=== PATIENT | female | born 1940 | race Caucasian/White ===

== ENCOUNTER 2021-03-04 12:53 | Inpatient (IN) ==
[2021-03-04] MEDS ORDERED: Lactated Ringers 1000 ml BAG 1,000 ML IV ONE (14:16)
[2021-03-04 14:43] LABS: ABS Basophils 0.1 10^3/ul (0-0.2); ABS Eosinophils 0.3 10^3/ul (0-0.6); ABS Monocytes 0.7 10^3/ul (0-0.8); ABS Neutrophils 5.4 10^3/ul (1.5-7.7); Eosinophil % 3.4 %; Hematocrit 39 % (35-47); Hemoglobin 12.9 g/dL (12.0-16.0); Lymphocyte % 23.6 %; Mean Corpuscular HGB Conc 34 g/dL (31-36); Mean Corpuscular Hemoglobin 30 pg (27-31); Mean Corpuscular Volume 91 fL (80-97); Platelet Count 174 10^3/uL (150-450); Red Blood Count 4.25 10^6 /uL (3.70-4.87); Red Cell Distribution Width 18 % (10-15); White Blood Count 8.4 10^3/uL (3.5-10.8)
[2021-03-04 15:01] LABS: Albumin 2.5 g/dL (3.2-5.2); Albumin/Globulin Ratio 0.9 (1-3); C Reactive Protein 14.14 mg/L (<8.01); Calcium 8.8 mg/dL (8.6-10.3); EGFR African American 55.2 (>60); EGFR Non-African American 45.6 (>60); Globulin 2.8 g/dL (2-4); Potassium 3.2 mmol/L (3.5-5.0); Total Bilirubin 0.4 mg/dL (0.2-1.0); Total Protein 5.3 g/dL (6.4-8.9)
[2021-03-04] MEDS ORDERED: NS 0.9% 1000 ml BAG 1,000 ML IV ONE ×2 (18:38→20:08)
[2021-03-04 20:26] LABS: Urine Appearance Cloudy; Urine Bilirubin Negative (Negative); Urine Blood 2+ (Negative); Urine Color Yellow; Urine Glucose Negative (Negative); Urine Ketones Negative (Negative); Urine Nitrite Negative (Negative); Urine Protein Negative (Negative); Urine Specific Gravity 1.011 (1.002-1.030); Urine Urobilinogen Negative (Negative)
[2021-03-04 20:37] LABS: Urine Bacteria 1+ (Absent); Urine Red Blood Cell 3+(>10/hpf) (Absent); Urine Squamous Epithelial Cell Present (Absent); Urine White Blood Cell 3+(>20/hpf) (Absent); Urine Yeast Present (Absent)
[2021-03-04] MEDS ORDERED: Azithromycin 500 mg/250 ml NS 500 MG/250 ML BAG IVPB SCH (22:00)
[2021-03-04] MEDS ORDERED: cefTRIAXone 1 gm/50 mL NS BAG 1 GM/50 ML BAG IVPB SCH (22:00)
[2021-03-04] MEDS ORDERED: NS 0.9% 1000 ml BAG 1,000 ML IV SCH (23:45)
[2021-03-05] MEDS ORDERED: Dextrose 50% Syringe 50 ml 25 GM/50 ML SYRINGE IV PUSH PRN (00:40)
[2021-03-05] MEDS ORDERED: Heparin 5000 UNITS/ML 1 mL VIAL SUBCUT SCH (06:00)
[2021-03-05] MEDS: KCL 20 MEQ/100 ML IVPREMIX 20 MEQ/100 ML BAG IV SCH ×2 (06:36→09:25)
[2021-03-05 06:59] LABS: ABS Eosinophils 0.2 10^3/ul (0-0.6); ABS Lymphocytes 2.1 10^3/ul (1.0-4.8); ABS Monocytes 0.5 10^3/ul (0-0.8); ABS Neutrophils 4.5 10^3/ul (1.5-7.7); Hematocrit 35 % (35-47); Hemoglobin 11.4 g/dL (12.0-16.0); Lymphocyte % 27.8 %; Mean Corpuscular HGB Conc 33 g/dL (31-36); Mean Corpuscular Hemoglobin 30 pg (27-31); Mean Corpuscular Volume 92 fL (80-97); Mean Platelet Volume 11.3 fL (7.4-10.4); Nucleated Red Blood Cells % 0.1; Platelet Count 149 10^3/uL (150-450); Red Blood Count 3.76 10^6 /uL (3.70-4.87); Red Cell Distribution Width 19 % (10-15); White Blood Count 7.4 10^3/uL (3.5-10.8)
[2021-03-05 07:11] LABS: Calcium 7.9 mg/dL (8.6-10.3); EGFR African American 71.6 (>60); EGFR Non-African American 59.2 (>60); Potassium 3.1 mmol/L (3.5-5.0)
[2021-03-05] MEDS ORDERED: Potassium Chlor 20 meq TAB.ER PO ONE (08:23)
[2021-03-05 08:40] LABS: Magnesium 1.5 mg/dL (1.9-2.7)
[2021-03-05] MEDS ORDERED: Senna/Docusate 8.6/50 mg (NF) TAB PO SCH (09:00)
[2021-03-05] MEDS ORDERED: Sucralfate 1 gm SUSP 1 GM/10 ML UDC PO SCH (09:00)
[2021-03-05] MEDS ORDERED: Aspirin EC 81 mg TAB.EC (enteric coated) PO SCH (09:00)
[2021-03-05] MEDS: Senna TAB 8.6 mg TAB PO SCH (09:13)
[2021-03-05] MEDS: CMCS: Dabigatran 150 mg CAP (NF) PO SCH ×2 (09:30→20:27)
[2021-03-05] MEDS: Docusate LIQ 100 MG/10 ML UDC PO SCH (09:47)
[2021-03-05] MEDS: Sucralfate 1 gm SUSP 1 GM/10 ML UDC PO SCH ×4 (10:33→20:27)
[2021-03-05] MEDS ORDERED: Polyethylene Glycol 3350 17 GM PACKET PO ONE (18:45)
[2021-03-06] MEDS ORDERED: cefTRIAXone 1 gm/50 mL NS BAG 1 GM/50 ML BAG IVPB SCH (01:00)
[2021-03-06] MEDS: Sucralfate 1 gm SUSP 1 GM/10 ML UDC PO SCH ×4 (08:09→21:20)
[2021-03-06] MEDS: CMCS: Dabigatran 150 mg CAP (NF) PO SCH ×2 (08:10→21:37)
[2021-03-06] MEDS: Docusate LIQ 100 MG/10 ML UDC PO SCH (08:10)
[2021-03-06] MEDS: Senna TAB 8.6 mg TAB PO SCH (08:10)
[2021-03-06] MEDS: Psyllium PAK PO SCH (08:16)
[2021-03-07] MEDS: Sucralfate 1 gm SUSP 1 GM/10 ML UDC PO SCH ×4 (09:46→20:26)
[2021-03-07] MEDS: Docusate LIQ 100 MG/10 ML UDC PO SCH (09:47)
[2021-03-07] MEDS: Senna TAB 8.6 mg TAB PO SCH (09:47)
[2021-03-07] MEDS: Psyllium PAK PO SCH (09:47)
[2021-03-07] MEDS: CMCS: Dabigatran 150 mg CAP (NF) PO SCH ×2 (10:00→20:26)
[2021-03-08] MEDS: CMCS: Dabigatran 150 mg CAP (NF) PO SCH ×2 (09:39→21:08)
[2021-03-08] MEDS: Sucralfate 1 gm SUSP 1 GM/10 ML UDC PO SCH ×4 (09:39→21:06)
[2021-03-08] MEDS: Senna TAB 8.6 mg TAB PO SCH (11:35)
[2021-03-08] MEDS: Docusate LIQ 100 MG/10 ML UDC PO SCH (11:35)
[2021-03-08] MEDS: Psyllium PAK PO SCH (11:35)
[2021-03-09] MEDS: Psyllium PAK PO SCH ×2 (09:35→09:45)
[2021-03-09] MEDS: Docusate LIQ 100 MG/10 ML UDC PO SCH (09:36)
[2021-03-09] MEDS: Sucralfate 1 gm SUSP 1 GM/10 ML UDC PO SCH ×4 (09:36→20:09)
[2021-03-09] MEDS: CMCS: Dabigatran 150 mg CAP (NF) PO SCH ×2 (09:36→20:10)
[2021-03-09] MEDS: Senna TAB 8.6 mg TAB PO SCH (09:36)
[2021-03-10] MEDS: Sucralfate 1 gm SUSP 1 GM/10 ML UDC PO SCH ×4 (09:56→21:10)
[2021-03-10] MEDS: CMCS: Dabigatran 150 mg CAP (NF) PO SCH ×2 (09:57→21:10)
[2021-03-10] MEDS: Docusate LIQ 100 MG/10 ML UDC PO SCH (09:58)
[2021-03-10] MEDS: Senna TAB 8.6 mg TAB PO SCH (09:58)
[2021-03-10] MEDS: Psyllium PAK PO SCH (09:59)
[2021-03-10 12:00] LABS: Calcium 8.3 mg/dL (8.6-10.3)
[2021-03-10 12:05] LABS: EGFR African American 73.5 (>60); EGFR Non-African American 60.7 (>60)
[2021-03-10 12:25] LABS: Magnesium 1.6 mg/dL (1.9-2.7); Potassium 3.3 mmol/L (3.5-5.0)
[2021-03-10] MEDS ORDERED: Potassium Chlor 20 meq TAB.ER PO ONE (16:34)
[2021-03-10] MEDS ORDERED: Dextrose 50% Syringe 50 ml 25 GM/50 ML SYRINGE IV PUSH PRN (16:48)
[2021-03-11 07:00] LABS: Calcium 8.5 mg/dL (8.6-10.3); EGFR African American 74.4 (>60); EGFR Non-African American 61.5 (>60); Magnesium 1.6 mg/dL (1.9-2.7); Potassium 3.4 mmol/L (3.5-5.0)
[2021-03-11] MEDS ORDERED: Magnesium Sulfate 2 gm BAG 2 GM/50 ML BAG IVPB ONE (08:35)
[2021-03-11] MEDS ORDERED: Potassium Chlor 20 meq TAB.ER PO ONE (08:35)
[2021-03-11] MEDS: Docusate LIQ 100 MG/10 ML UDC PO SCH (09:57)
[2021-03-11] MEDS: CMCS: Dabigatran 150 mg CAP (NF) PO SCH ×2 (10:00→20:34)
[2021-03-11] MEDS: Senna TAB 8.6 mg TAB PO SCH (10:01)
[2021-03-11] MEDS: Psyllium PAK PO SCH (10:01)
[2021-03-11] MEDS: Sucralfate 1 gm SUSP 1 GM/10 ML UDC PO SCH ×4 (10:12→20:34)
[2021-03-11] MEDS ORDERED: Ondansetron ODT 4 mg TAB 4 MG TAB SL PRN (18:36)
[2021-03-12] MEDS: Psyllium PAK PO SCH (12:22)
[2021-03-12] MEDS: Senna TAB 8.6 mg TAB PO SCH (12:22)
[2021-03-12] MEDS: Docusate LIQ 100 MG/10 ML UDC PO SCH (12:22)
[2021-03-12] MEDS: CMCS: Dabigatran 150 mg CAP (NF) PO SCH (12:22)
[2021-03-12] MEDS: Sucralfate 1 gm SUSP 1 GM/10 ML UDC PO SCH ×2 (12:23→12:59)
[2021-03-12 13:40] VITALS: BP 114/56
== END 2021-03-12 14:15 | disposition home or self-care (01) | DRG 690 ==
LOC: ED 12:53 → MEDTELE 03-05 02:30 → MED 03-09 17:58
PROVIDERS: ADMIT Internal Medicine; ATTEND Internal Medicine